=== PATIENT | male | born 1980 | race Caucasian/White ===

== ENCOUNTER → 2018-12-30 12:23 | Outpatient (CLI) | payer BC, MEDICAID, SELFPAY ==
[2018-12-30 14:31] LABS: Anion Gap 15.4 mEq/L (5-15); Blood Urea Nitrogen 11 mg/dL (7-18); Calcium 9.2 mg/dL (8.5-10.1); Carbon Dioxide 26 mmol/L (21.0-32.0); Chloride 102 mmol/L (98-107); Creatinine,Serum 0.87 mg/dL (0.70-1.30); Estimated Glomerular Filt Rate 99 ml/min (>60); GFR (African American) 120 ML/MIN (>60); Glucose 77 mg/dL (74-106); Potassium 4.4 mmoL/L (3.5-5.1); Sodium 139 mmol/L (136-145)
== END ==
PROVIDERS: Visit Provider Internal Medicine Cardiovascular Disease
DX: R07.89 Other chest pain (principal); R07.9 Chest pain, unspecified
CPT/HCPCS: 36415; 80048

== ENCOUNTER 2019-03-31 08:51 | Outpatient (RCR) | payer OTHER, SELFPAY | END 2019-03-31 09:00 | disposition home or self-care (01) | LOC: OT 08:51 | PROVIDERS: Visit Provider Orthopaedic Surgery | DX: M20.021 Boutonniere deformity of right finger(s) (principal) | CPT/HCPCS: 97763 ==

== ENCOUNTER → 2019-05-23 15:03 | Outpatient (CLI) | payer OTHER, SELFPAY ==
--- NOTE | 2019-05-23 15:14 | XR_ITS ---
XR finger RT min 2V CLINICAL INDICATION: ITS.REASON: right ring finger Boutineere deformity ORDERING PHYSICIAN: Fox Navarro MD PATIENT AGE: 39 years Comparison: None FINDINGS: No acute fracture or dislocation evident. There is mild flexion of the PIP joint and hyperextension of the DIP joint. There is a small lucency involving the distal aspect of the middle phalanx of the ring finger nonspecific. Possible small erosive change. IMPRESSION: No acute fracture. Flexion deformity of the ring finger
== END ==
PROVIDERS: Visit Provider Orthopaedic Surgery
DX: M20.021 Boutonniere deformity of right finger(s) (principal)
CPT/HCPCS: 73140

== ENCOUNTER 2019-07-03 08:00 | Outpatient (RCR) | payer OTHER, SELFPAY ==
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
== END 2019-07-03 08:05 | disposition home or self-care (01) ==
LOC: OT 08:00
PROVIDERS: Visit Provider Orthopaedic Surgery
DX: M20.021 Boutonniere deformity of right finger(s) (principal); S66.901D Unspecified injury of unspecified muscle, fascia and tendon at wrist and hand level, right hand, subsequent encounter
CPT/HCPCS: 97035; 97110; 97140; 97166

== ENCOUNTER 2020-08-21 19:16 | Emergency (ER) | payer OTHER, SELFPAY ==
--- NOTE | 2020-08-21 19:31 | XR_ITS ---
PROCEDURE: XR ANKLE LT MIN 3V CLINICAL INDICATION: PAIN AND SWELLING Left ankle pain and swelling COMPARISON: No exams were available for comparison FINDINGS: Small calcific density noted along the distal aspect of the medial malleolus and may represent a small area of exostosis. An avulsion injury could have a similar appearance. Please correlate with patient's area of pain and tenderness. There is mild soft tissue swelling laterally. No other significant anomalies are evident. The joint space is well preserved and the talar dome has an unremarkable appearance. IMPRESSION: Mild soft tissue swelling with a small calcific density noted along the distal aspect of the medial malleolus and may represent a small area of exostosis. An avulsion injury could have a similar appearance. Please correlate with patient's area of pain and tenderness Dictated by: Andrea Contreras MD 08/22/2020 06:02 Andrea Contreras MD in [place] 08/22/2020 06:02
[2020-08-21 19:35] VITALS: BP 121/73; PULSE 86; RESP 20; TEMP 36.9; O2SAT 99; BMI 31.0
--- NOTE | 2020-08-21 19:40 | HMH.EDUTC ---
[facility] [place] Disposition Clinical Impression: Gout attack Qualifiers: Gout site: ankle Gout etiology: unspecified cause Laterality: left Qualified Code(s): M10.9 - Gout, unspecified Disposition: Home, Self-Care Condition on Discharge: Good Instructions: How To Perform RICE (Rest, Ice, Compress, Elevate) Additional Instructions: Take medication as prescribed Follow up with Family Doctor for further treatment and evaluation Return if needed Straight to ER if any life threatening symptoms Prescriptions: Indomethacin 50 mg PO TID 5 Days #15 cap Transmission Status: Pending to [facility] Referrals: PCP,No [Primary Care Provider] - As needed Time of Disposition: 20:27 Medical Decision Making - Reece Inquiry Pt receiving controlled substance: No Reece was queried for this patient: No Vital Signs: 08/21/20 19:35 Temperature 98.4 F Temperature Source Oral Pulse Rate [Radial] 86 Respiratory Rate 20 Blood Pressure [Right Arm] 121/73 Blood Pressure Mean [Right Arm] 89 Blood Pressure Source [Right Arm] Automatic Cuff 02 Sat by Pulse Oximetry 99 Oxygen Delivery Method Room Air - Lab Data Lab Results 08/21/20 19:50: Uric Acid 9.1 H Orders (Tests/Meds): ED MEDICATIONS Discontinued Medications Generic Name Dose Route Start Last Admin Trade Name Freq PRN Reason Stop Dose Admin Ketorolac Tromethamine 60 mg 08/21/20 20:08 08/21/20 20:17 Ketorolac 60mg/2ml Vial IM 08/21/20 20:09 60 mg ONCE ONE Administration Methylprednisolone Sodium Succinate 125 mg 08/21/20 20:17 08/21/20 20:18 Methylprednisolone Sod Succ 125mg Vial IM 08/21/20 20:18 125 mg ONCE ONE Administration ORDERS Category Date Time Status XR ankle LT min 3V Stat Exams 08/21/20 19:31 Taken Medical Decision Narrative: Patient denies any kidney or renal problems [facility] [place] HPI - General Stated complaint: LEFT ANKLE SWOLLEN Time Seen by Provider: 08/21/20 19:40 Mode of Arrival: Ambulatory Source of Information: Patient Limitations: No Limitations Description of Symptoms (Recalled from Triage Doc. by RN): left ankle swollen and hurting since this morning. HEENT Symptoms (Recalled from RN notes): No Resp Symptoms (Recalled from RN notes): No Skin Symptoms (Recalled from RN notes): No MS Symptoms (Recalled from RN notes): Yes Functional Status (Recalled from RN notes): wnl - History of Present Illness Provider Complaint: Patient states that he woke up this morning with swelling in his left ankle States that he worked all day yesterday and did a lot of walking but does not recall hurting it States that last night around 2am he woke up to sharp pain in his ankle and then woke up an ankle was swollen and had pain when he tried to walk on it States that he broke this ankle when he was young twice. - Related Data Home Medications Medication Instructions Recorded Confirmed albuterol sulfate 90 mcg/actuation 1 puff INHALATION Q6H PRN 12/30/18 07/04/19 aerosol inhaler Previous Rx's Medication Instructions Recorded Indomethacin 50 mg PO TID 5 Days #15 cap 08/21/20 Allergies Allergy/AdvReac Type Severity Reaction Status Date / Time No Known Allergies Allergy Verified 07/04/19 09:35 - Worker's Comp Is this a Worker's Comp case?: No [facility] History - Hepatitis A Screen Drug use history?: No High risk sexual behaviors?: No History of sexually transmitted infection?: No Currently employed?: No Childcare worker?: No Do you have indoor plumbing?: Yes Do you have electricity?: Yes Attestation statement:: This patient has been screened for Hepatitis A risk factors. I have reviewed the patient's past medical history: Yes Medical History: Reports:: Asthma Denies:: Cancer, Diabetes Mellitus Type 2, Hypertension, MRSA Other Surgeries: Yes: No Previous Surgery Amputation: No Fractures: No - Social History Smoking Status: Former smoker #Yrs smoked (if former smoker): 10 Alcohol Intake: n
[2020-08-21 20:11] LABS: Uric Acid 9.1 mg/dl (3.5-8.5)
[2020-08-21 20:37] VITALS: BP 121/73; PULSE 86; RESP 20; TEMP 36.9; O2SAT 99
== END 2020-08-21 20:39 | disposition home or self-care (01) ==
PROVIDERS: Emergency Provider Nurse Practitioner
DX: M10.072 Idiopathic gout, left ankle and foot (principal); J45.909 Unspecified asthma, uncomplicated
CPT/HCPCS: 73610; 84550; 96372; 99202

== ENCOUNTER → 2020-09-06 08:24 | Outpatient (CLI) | payer OTHER, SELFPAY ==
[2020-09-06 09:12] LABS: Basophils % 0.8 % (0.1-2.0); Eosinophils # 0.1 K/mm3 (0.0-0.4); Eosinophils % 2.1 % (0.1-12.0); Hematocrit 48.7 % (42.0-52.0); Lymphocytes # 1.7 K/mm3 (0.7-4.5); Lymphocytes % 39.2 % (10-50); Mean Corpuscular HGB Conc 32.9 g/dL (31.8-35.4); Mean Corpuscular Hemoglobin 28.5 pg (27.0-31.2); Mean Corpuscular Volume 86.8 fl (80-94); Mean Platelet Volume 8.5 fl (7.4-10.4); Monocytes # 0.3 K/mm3 (0.1-1.0); Monocytes % 6.9 % (1.7-9.3); Neutrophils # 2.3 K/mm3 (1.8-7.8); Neutrophils % 50.9 % (37.0-80.0); Platelet Count 265 K/mm3 (142-424); Red Blood Count 5.61 M/mm3 (4.60-6.20); Red Cell Distribution Width 13.6 % (11.5-17.5); White Blood Count 4.4 K/mm3 (4.8-10.8)
[2020-09-06 09:21] LABS: Chloride 101 mmol/L (98-107); Potassium 4.4 mmoL/L (3.5-5.1); Sodium 138 mmol/L (136-145)
[2020-09-06 09:23] LABS: Blood Urea Nitrogen 9 mg/dl (9-20); Estimated Glomerular Filt Rate 108 ml/min (>60); GFR (African American) 131 ML/MIN (>60)
[2020-09-06 09:24] LABS: Alanine Aminotransferase 55 U/L (12-78); Albumin Level 4.5 g/dl (3.5-5.0); Albumin/Globulin Ratio 1.5 (1.1-1.8); Alkaline Phosphatase 86 U/L (38-126); Anion Gap 13.4 mEq/L (5-15); Aspartate Amino Transferase 47 U/L (17-59); Bilirubin,Total 0.5 mg/dl (0.2-1.3); Calcium 9.5 mg/dl (8.4-10.2); Carbon Dioxide 28 mmol/L (22.0-30.0); Cholesterol 170 mg/dl (140-200); Glucose 104 mg/dl (74-100); Total Protein,Serum 7.5 g/dl (6.3-8.2); Triglycerides 490 mg/dl (30-150)
[2020-09-06 09:25] LABS: Chol/HDL Ratio 5.2 (1-3.5); HDL Cholesterol 33 mg/dl (40-60)
[2020-09-06 09:36] LABS: Direct LDL Cholesterol 56.82 mg/dL (100-129)
[2020-09-06 09:42] LABS: T4 (Thyroxine) 8.2 ug/dl (5.53-11.0)
[2020-09-06 09:55] LABS: Thyroid Stimulating Hormone 3.29 uIU/mL (0.465-4.68)
[2020-09-07 18:18] LABS: PSA, Free 0.28 ng/mL; Prostate Specific Ag 0.8 ng/mL (0.0-4.0)
[2020-09-13 10:28] LABS: 1,25 Dihydroxy Vitamin D 69 pg/mL (.); 1,25-Dihydroxy, Vitamin D-2 <10 pg/mL (.); 1,25-Dihydroxy, Vitamin D-3 64 pg/mL (.)
== END ==
PROVIDERS: Visit Provider Nurse Practitioner Family
DX: R53.83 Other fatigue (principal); M10.9 Gout, unspecified; E67.3 Hypervitaminosis D
CPT/HCPCS: 36415; 80053; 80061; 82652; 84153; 84154; 84436; 84443; 85025

== ENCOUNTER 2021-02-24 11:50 | Emergency (ER) | payer OTHER, SELFPAY ==
--- NOTE | 2021-02-24 11:57 | XR_ITS ---
PROCEDURE: XR RIBS LT MIN 3V W CXR1V CLINICAL INDICATION: pain Left-sided rib pain COMPARISON: CR CXR CHEST(2 VIEWS-NOT PORTABLE) from 09/05/2015 CR CXR1VP XR chest portable from 12/20/2018 FINDINGS: Frontal view of the chest shows no acute finding. Multiple views of the left ribs show no fracture, dislocation, lytic, or blastic change. IMPRESSION: No acute findings. Dictated by: Andrea Contreras MD 02/24/2021 12:25 Andrea Contreras MD in [place] 02/24/2021 12:25
[2021-02-24 12:10] VITALS: BP 107/73; PULSE 79; RESP 20; TEMP 36.8; O2SAT 97; BMI 35.4
--- NOTE | 2021-02-24 12:31 | HMH.EDUTC ---
[facility] Disposition Clinical Impression: Contusion of rib on left side Qualifiers: Encounter type: initial encounter Qualified Code(s): S20.212A - Contusion of left front wall of thorax, initial encounter Disposition: Home, Self-Care Condition on Discharge: Good Instructions: DI for Rib Contusion, Ibuprofen Additional Instructions: *Ibuprofen nedra 6 hours with meal as needed for pain/inflammation *Not additional anti-inflammatory like motrin, aleve, advil with the above amount of ibuprofen. You can still take Tylenol every 4 hours as needed if you need something else for pain *Ice 20 minutes every 2 hours for the first 48 hours after the initial injury followed by moist heat every 20 minutes 3-4 times a day to affected area Over the counter lidocaine pain patches may help with pain *Keep this area active, no movement leads to more stiffness, However take it easy and avoid heavy lifting pushing or pulling *Follow up with you family doctor if no improvement for further treatment Prescriptions: Ibuprofen [Ibuprofen 600mg Tablet] 600 mg PO Q6HP PRN #20 tab PRN Reason: Moderate Pain Transmission Status: Pending to [facility] Referrals: Ayad Perez APRN [Primary Care Provider] - As needed Medical Decision Making - Reece Inquiry Pt receiving controlled substance: No Reece was queried for this patient: No Vital Signs: 02/24/21 12:10 Temperature 98.2 F Temperature Source Oral Pulse Rate [Right Brachial] 79 Respiratory Rate 20 Blood Pressure [Right Arm] 107/73 L Blood Pressure Mean [Right Arm] 84 Blood Pressure Source [Right Arm] Automatic Cuff Blood Pressure Position [Right Arm] Sitting 02 Sat by Pulse Oximetry 97 Oxygen Delivery Method Room Air - Radiology Data #1 Image(s): Chest (with left ribs) Image Reviewed: Yes I have reviewed radiologist's interpretation No acute findings. [facility] HPI - General Stated complaint: AO [id number] injury to left rib area Time Seen by Provider: 02/24/21 12:31 Mode of Arrival: Ambulatory Source of Information: Patient Limitations: No Limitations Description of Symptoms (Recalled from Triage Doc. by RN): PATIENT STATES HE WAS PLAYING FOOTBALL ON 02/15 AND THINKS HE FRACTURED RIBS ON HIS LEFT SIDE HEENT Symptoms (Recalled from RN notes): No Resp Symptoms (Recalled from RN notes): No Skin Symptoms (Recalled from RN notes): No MS Symptoms (Recalled from RN notes): Yes Functional Status (Recalled from RN notes): WNL - History of Present Illness Provider Complaint: Patient states that he was playing football about a week or two ago when he was tackled by his nephew and has been having pain in his left rib areas ever since State that he was worried he may have broken a rib or something - Related Data Previous Rx's Medication Instructions Recorded Ibuprofen [Ibuprofen 600mg 600 mg PO Q6HP PRN #20 tab 02/24/21 Tablet] Allergies Allergy/AdvReac Type Severity Reaction Status Date / Time No Known Allergies Allergy Verified 09/04/20 17:23 - Worker's Comp Is this a Worker's Comp case?: No [facility] History - Hepatitis A Screen Drug use history?: No High risk sexual behaviors?: No History of sexually transmitted infection?: No Currently employed?: No Childcare worker?: No Do you have indoor plumbing?: Yes Do you have electricity?: Yes Attestation statement:: This patient has been screened for Hepatitis A risk factors. I have reviewed the patient's past medical history: Yes Medical History: Reports:: Asthma Denies:: Cancer, Diabetes Mellitus Type 2, Hypertension, MRSA Other Surgeries: Yes: No Previous Surgery Amputation: No Fractures: Yes Comment: left ankle - Social History Smoking Status: Former smoker #Yrs smoked (if former smoker): 10 Alcohol Intake: never Substance Use Type: denies use Occupational Status: other Housing: house Household Members: family Family Hx:: Coronary Artery Disease, Stroke Comment: Mother-CAD@50's. Brother-M
[2021-02-24 12:44] VITALS: BP 107/73; PULSE 79; RESP 20; TEMP 36.8; O2SAT 97
== END 2021-02-24 12:48 | disposition home or self-care (01) ==
PROVIDERS: Emergency Provider Nurse Practitioner; PCP Nurse Practitioner Family
DX: S20.212A Contusion of left front wall of thorax, initial encounter (principal); W03.XXXA Other fall on same level due to collision with another person, initial encounter; Y93.61 Activity, american tackle football; Y92.89 Other specified places as the place of occurrence of the external cause; J45.909 Unspecified asthma, uncomplicated; Z87.891 Personal history of nicotine dependence
CPT/HCPCS: 71101; 99202; G0463

== ENCOUNTER 2021-07-23 13:26 | Emergency (ER) | payer OTHER, SELFPAY ==
[2021-07-23 14:23] VITALS: BP 138/88; PULSE 84; RESP 16; TEMP 37; O2SAT 100; BMI 38.2
[2021-07-23 14:29] LABS: Uric Acid 8.9 mg/dl (3.5-8.5)
--- NOTE | 2021-07-23 14:29 | HMH.EDUTC ---
[facility] [place]ression: Gout attack Qualifiers: Gout site: unspecified site Gout etiology: unspecified cause Qualified Code(s): M10.9 - Gout, unspecified Disposition: Home, Self-Care Condition on Discharge: Good Instructions: DI for Gout, Indomethacin Additional Instructions: Take medication as prescribed FOllow up with your Family Doctor if no improvement or any worsening of symptoms Return if needed Straight to ER if any life threatening symptoms Prescriptions: Indomethacin 50 mg PO TID #15 cap Transmission Status: Received by [facility] Referrals: Ayad Perez APRN [Primary Care Provider] - Medical Decision Making - Reece Inquiry Pt receiving controlled substance: No Reece was queried for this patient: No Vital Signs: 07/23/21 14:23 Temperature 98.6 F Temperature Source Oral Pulse Rate [Right] 84 Respiratory Rate 16 Blood Pressure [Right Arm] 138/88 Blood Pressure [Right Radial Artery] 138/88 Blood Pressure Mean [Right Arm] 104 Blood Pressure Mean [Right Radial Artery] 104 02 Sat by Pulse Oximetry 100 Oxygen Delivery Method Room Air - Lab Data Lab Results 07/23/21 14:08: Uric Acid 8.9 H Orders (Tests/Meds): ED MEDICATIONS Discontinued Medications Generic Name Dose Route Start Last Admin Trade Name Freq PRN Reason Stop Dose Admin Ketorolac Tromethamine 60 mg 07/23/21 14:44 07/23/21 14:52 Ketorolac 60mg/2ml Vial IM 07/23/21 14:45 60 mg ONCE ONE Administration Methylprednisolone Sodium Succinate 125 mg 07/23/21 14:44 07/23/21 14:52 Methylprednisolone Sod Succ 125mg Vial IM 07/23/21 14:45 125 mg ONCE ONE Administration [facility] [place] - General Stated complaint: right arm pain, no accident Time Seen by Provider: 07/23/21 14:29 Description of Symptoms (Recalled from Triage Doc. by RN): RIGHT ARM PAIN RADIATING DOWN TO ELBOW & WRIST. I THINK MY GOUT HAS COME BACK. HEENT Symptoms (Recalled from RN notes): No Resp Symptoms (Recalled from RN notes): No Skin Symptoms (Recalled from RN notes): No MS Symptoms (Recalled from RN notes): Yes Functional Status (Recalled from RN notes): WNL - History of Present Illness Provider Complaint: Patient states that his wrist was hurting then he went bowling last night and had pain when he would try to bowl in his wrist States that today he was hurting in her elbow and wrist and thinks his gout has come back and wanted to get checked - Related Data Previous Rx's Medication Instructions Recorded prednisone 20 mg tablet 20 mg PO BID 5 Days #10 tab 05/14/21 Indomethacin 50 mg PO TID #15 cap 07/23/21 Allergies Allergy/AdvReac Type Severity Reaction Status Date / Time No Known Allergies Allergy Verified 07/23/21 14:29 - Worker's Comp Is this a Worker's Comp case?: No [facility] History - Hepatitis A Screen Drug use history?: No High risk sexual behaviors?: No History of sexually transmitted infection?: No Currently employed?: No Childcare worker?: No Do you have indoor plumbing?: Yes Do you have electricity?: Yes Attestation statement:: This patient has been screened for Hepatitis A risk factors. I have reviewed the patient's past medical history: Yes Medical History: Reports:: Asthma Denies:: Cancer, Diabetes Mellitus Type 2, Hypertension, MRSA Other Surgeries: Yes: No Previous Surgery Amputation: No Fractures: Yes Comment: left ankle - Social History Smoking Status: Former smoker #Yrs smoked (if former smoker): 10 Alcohol Intake: never Substance Use Type: denies use Occupational Status: other Housing: house Household Members: family Family Hx:: Coronary Artery Disease, Stroke Comment: Mother-CAD@50's. Brother-Mild Stroke ROS Obtained: Yes All systems reviewed & no additional complaints, Yes Systems reviewed as appropriate & no additional complaints - Constitutional Constitutional: Reports system reviewed and no additional complaints, except as docu, Denies body ache,
[2021-07-23 15:36] VITALS: BP 138/88; PULSE 84; RESP 16; TEMP 37; O2SAT 100
== END 2021-07-23 15:37 | disposition home or self-care (01) ==
PROVIDERS: Emergency Provider Nurse Practitioner; PCP Nurse Practitioner Family
DX: M10.021 Idiopathic gout, right elbow (principal); J45.909 Unspecified asthma, uncomplicated
CPT/HCPCS: 84550; 96372; 99202; G0463

== ENCOUNTER 2021-08-27 10:55 | Emergency (ER) | payer OTHER, SELFPAY ==
[2021-08-27 11:28] VITALS: BP 116/65; PULSE 84; RESP 18; TEMP 36.4; O2SAT 96; BMI 27.2
[2021-08-27 11:31] VITALS: BP 113/66; PULSE 64; RESP 14; TEMP 36.8; O2SAT 98; BMI 35.4
--- NOTE | 2021-08-27 11:33 | XR_ITS ---
PROCEDURE: XR WRIST RT MIN 3V CLINICAL INDICATION: pain COMPARISON: CR WRR3 WRIST-3 VIEWS-RT from 08/31/2013 CR WRISTCMRT XR wrist RT min 3V from 05/05/2018 CR WRISTCMRT XR wrist RT min 3V from 10/31/2018 FINDINGS: No fracture or dislocation. There are cystic changes present within the lunate which are nonspecific The joint spaces are well-preserved. No significant degenerative/arthritic changes. No erosive changes evident. Other findings:None. IMPRESSION: Small cystic areas within the lunate which have developed since 10/31/2018 but have a benign appearance. Please correlate with clinical parameters. These may be due to small geodes. Dictated by: Andrea Contreras MD 08/27/2021 14:40 Andrea Contreras MD in [place] 08/27/2021 14:40
--- NOTE | 2021-08-27 11:33 | XR_ITS ---
PROCEDURE: XR FOREARM RT 2V CLINICAL INDICATION: pain COMPARISON: CR XR WRIST RT MIN 3V from 08/27/2021 FINDINGS: No fracture or dislocation. No lytic or blastic change. There is normal mineralization. The joint spaces are well-preserved. No significant degenerative/arthritic changes. No erosive changes evident. Other findings:None. IMPRESSION: Negative right forearm Dictated by: Andrea Contreras MD 08/27/2021 14:38 Adnrea Contreras MD in [place] 08/27/2021 14:38
--- NOTE | 2021-08-27 12:50 | HMH.EDUTC ---
[facility] [place] Clinical Impression: Tenosynovitis of right wrist, Right wrist pain, Right forearm pain Disposition: Home, Self-Care Condition on Discharge: Good Instructions: Tenosynovitis, DI for Tenosynovitis Additional Instructions: Rest the extremity, wear the splint to try to allow your tendons time to rest and heal, Elevate the extremity as tolerated while you are resting. Take the steroids (medrol dose pack) as directed to try to reduce the inflammation that is around your tendons in your hand and wrist. Follow up with Dr. Navarro (orthopedics). I put in a referral but you need to call his office and schedule an appointment. This will probably be an ongoing issue until it resolves, so make sure you follow up with orthopedics. Follow up with your regular doctor. GO TO THE ER FOR ANY WORSENING SYMPTOMS Prescriptions: methylPREDNISolone [Medrol] 4 mg PO DIRECTED 6 Days #21 packet Transmission Status: Received by [facility] Referrals: Javy Chen MD [Primary Care Provider] - Fox Navarro MD [Staff Physician] - Forms: Work/School Release Time of Disposition: 13:05 Medical Decision Making - Medical Records Medical records reviewed: No: I reviewed the patient's medical records. - Reece Inquiry Pt receiving controlled substance: No Vital Signs: 08/27/21 11:28 08/27/21 11:31 08/27/21 12:55 Temperature 97.6 F 98.2 F 98.2 F Temperature Source Oral Oral Pulse Rate 64 Pulse Rate [Left] 64 Pulse Rate [Right Radial] 84 Respiratory Rate 18 14 14 Blood Pressure 113/66 Blood Pressure [Right Arm] 116/65 113/66 Blood Pressure Mean [Right Arm] 82 81 Blood Pressure Source [Right Arm] Automatic Cuff Blood Pressure Position [Right Arm] Supine 02 Sat by Pulse Oximetry 96 98 Oxygen Delivery Method Room Air - Radiology Data #1 Image(s): Wrist Image Reviewed: Yes I reviewed the patient's radiology image, Yes I have reviewed radiologist's interpretation Preliminary Findings: Abnormal PROCEDURE: XR WRIST RT MIN 3V CLINICAL INDICATION: pain COMPARISON: CR WRR3 WRIST-3 VIEWS-RT from 08/31/2013 CR WRISTCMRT XR wrist RT min 3V from 05/05/2018 CR WRISTCMRT XR wrist RT min 3V from 10/31/2018 FINDINGS: No fracture or dislocation. There are cystic changes present within the lunate which are nonspecific The joint spaces are well-preserved. No significant degenerative/arthritic changes. No erosive changes evident. Other findings:None. IMPRESSION: Small cystic areas within the lunate which have developed since 10/31/2018 but have a benign appearance. Please correlate with clinical parameters. These may be due to small geodes. Dictated by: Andrea Contreras MD 08/27/2021 14:40 Andrea Contreras MD in [place] 08/27/2021 14:40 [facility] [facility] [place] - General Stated complaint: 08/26 AO rt wrist pain/swelling Time Seen by Provider: 08/27/21 11:45 Mode of Arrival: Ambulatory Source of Information: Patient Limitations: No Limitations Description of Symptoms (Recalled from Triage Doc. by RN): pt went bowling 08/19 and felt a pop in his R wrist. pt is still having pain and unable to do any lifting. 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 He states that 2 weeks ago after bowling he began having right wrist pain. He had tried to rest his wrist and go down to bowling 2 nights per week, but his wrist and forearm pain had continued. Then, last night when he was bowling he heard an audible pop and his wrist pain worsened. He denies any falls or other injuries. He denies any numbness or tingling of his hand. He denies any shou
[2021-08-27 12:55] VITALS: BP 113/66; PULSE 64; RESP 14; TEMP 36.8
== END 2021-08-27 13:11 | disposition home or self-care (01) ==
PROVIDERS: Emergency Provider Nurse Practitioner Family; PCP Emergency Medicine
DX: M65.831 Other synovitis and tenosynovitis, right forearm (principal); J45.909 Unspecified asthma, uncomplicated; Z87.891 Personal history of nicotine dependence
CPT/HCPCS: 29125; 73090; 73110; 99202; G0463

== ENCOUNTER → 2021-10-22 09:09 | Outpatient (CLI) | payer OTHER, SELFPAY | PROVIDERS: PCP Emergency Medicine; Visit Provider Nurse Practitioner | DX: Z20.822 Contact with and (suspected) exposure to COVID-19 (principal) | CPT/HCPCS: C9803; U0003; U0005 ==

== ENCOUNTER 2022-08-31 09:55 | Emergency (ER) | payer OTHER, SELFPAY ==
--- NOTE | 2022-08-31 09:58 | EXP.UTC ---
Discharge Plan Disposition Patient Disposition: Home, Self-Care Condition: Good Prescriptions Prescriptions: New methylprednisolone 4 mg Tablets,Dose Pack 4 mg PO DIRECTED Qty: 21 0RF allopurinol 100 mg tablet 100 mg PO BID 30 Days Qty: 60 0RF No Action indomethacin 50 mg capsule 50 mg PO TID Qty: 30 0RF prednisone 20 mg tablet 20 mg PO BID 5 Days Qty: 10 0RF allopurinol 100 mg tablet 100 mg PO DAILY Referrals Follow up/Referrals: Ayad Perez APRN [Primary Care Provider] - See instructions Activity Restrictions/Add. Instructions Additional Instructions/Restrictions: Drink plenty of fluids. Make sure you follow your low uric acid diet closely. Take tylenol or ibuprofen for pain or fever. Take the medications as directed. Follow up with your regular doctor. GO TO THE ER FOR ANY WORSENING SYMPTOMS Clinical Impressions Clinical Impression: Gout attack Stand Alone Forms Stand Alone Forms: Work/School Release Instructions Patient Instructions: Gout, DI for Gout Discharge ED Provider: Charles Doyle [facility] General Stated complaint: left ankle pain, no accident Time Seen by Provider: 08/31/22 09:58 History of Present Illness Provider Complaint: He is here with left ankle pain. He states that he has a history of gout. He believes his allopurinol needs to be increased, but he was unable to get in with his pcp to have it adjusted. Related Data Home Medications Medication Instructions Recorded Confirmed allopurinol 100 mg tablet 100 mg PO DAILY gout 08/31/22 08/31/22 Previous Rx's Medication Instructions Recorded indomethacin 50 mg capsule 50 mg PO TID #30 caps 06/19/22 prednisone 20 mg tablet 20 mg PO BID 5 days #10 tabs 06/19/22 allopurinol 100 mg tablet 100 mg PO BID 30 days #60 tabs 08/31/22 methylprednisolone 4 mg tablets in 4 mg PO DIRECTED #21 tabs 08/31/22 a dose pack Allergies Allergy/AdvReac Type Severity Reaction Status Date / Time No Known Allergies Allergy Verified 08/31/22 10:11 [facility] Medical History Asthma Social History Smoking Status: Former smoker pack-years: 10 alcohol intake: never substance use type: denies use current occupational status: other Travel in the last 8 weeks: None household members: family housing: house ROS Obtained: Yes All systems reviewed & no additional complaints except as documented Constitutional Constitutional: Denies chills and Denies fever(s) Integumentary/Breasts Skin/Breast: Denies redness, Denies rash and Denies wounds Neurologic Neurologic: Denies paresthesias Physical Exam General General appearance: alert and in no apparent distress Head Head exam: atraumatic, normocephalic and normal inspection Eye Eye exam: Present normal appearance, PERRL and EOMI ENT ENT exam: Present normal exam, normal oropharynx, mucous membranes moist, TM's normal bilaterally and normal external ear exam Neck Neck exam: Present normal inspection, full ROM and trachea midline; Absent meningismus or lymphadenopathy Chest Chest inspection: Present normal inspection and symmetric chest wall rise; Absent tenderness Respiratory Respiratory exam: Present normal lung sounds bilaterally; Absent respiratory distress Cardiovascular Cardiovascular exam: Present regular rate and normal rhythm; Absent JVD Abdominal Exam Abdominal exam: Present soft and normal bowel sounds; Absent distention, tenderness or guarding Extremities Exam Extremities exam: Present normal capillary refill; Absent calf tenderness Expanded Lower Extremity Exam Left: Ankle exam: Present normal inspection and full ROM; Absent tenderness Foot/toe exam: Present normal inspection and full ROM; Absent tenderness Back Exam Back exam: Present normal inspection; Absent tenderness Neurological Exam Neurologic
[2022-08-31 10:09] VITALS: BP 123/80; PULSE 73; RESP 18; TEMP 36.6; O2SAT 97; BMI 35.7
[2022-08-31 10:49] VITALS: BP 123/80; PULSE 73; RESP 18; TEMP 36.6
== END 2022-08-31 10:54 | disposition home or self-care (01) ==
PROVIDERS: Emergency Provider Nurse Practitioner Family; PCP Nurse Practitioner Family
DX: M10.9 Gout, unspecified (principal)
CPT/HCPCS: 99212; G0463

== ENCOUNTER → 2022-12-03 10:30 | Outpatient (CLI) | payer OTHER, SELFPAY | PROVIDERS: PCP Nurse Practitioner Family; Visit Provider Nurse Practitioner Family | DX: I10 Essential (primary) hypertension (principal) ==

== ENCOUNTER → 2022-12-03 10:42 | Outpatient (CLI) | payer OTHER, SELFPAY ==
--- NOTE | 2022-12-03 10:47 | XR_ITS ---
FINAL REPORT CLINICAL HISTORY: L Ankle pain, gout COMPARISON: 08/21/2020 FINDINGS: AP, oblique, and lateral views of the left ankle were obtained. No erosions are identified. There is no fracture or dislocation. The ankle mortise is intact. Soft tissues are normal. IMPRESSION: No acute osseous abnormality of the left ankle. Reviewed, Interpreted and Dictated by Aileen Guevara MD Transcribed by Madeline Starks Authenticated and [facility]
[2022-12-03 15:00] LABS: Alanine Aminotransferase 53 U/L (12-78); Albumin Level 4.6 g/dl (3.5-5.0); Albumin/Globulin Ratio 1.6 (1.1-1.8); Alkaline Phosphatase 95 U/L (38-126); Anion Gap 13.6 mEq/L (5-15); Aspartate Amino Transferase 38 U/L (17-59); Bilirubin,Total 0.5 mg/dl (0.2-1.3); Blood Urea Nitrogen 16 mg/dl (9-20); Carbon Dioxide 26 mmol/L (22.0-30.0); Chloride 102 mmol/L (98-107); Cholesterol 204 mg/dl (140-200); Estimated Glomerular Filt Rate 107 ml/min (>60); GFR (African American) 130 ML/MIN (>60); Globulin 2.8 g/dL (1.3-3.2); Glucose 99 mg/dl (74-100); HDL Cholesterol 29 mg/dl (40-60); Potassium 4.6 mmoL/L (3.5-5.1); Sodium 137 mmol/L (136-145); Total Protein,Serum 7.4 g/dl (6.3-8.2); Uric Acid 6.1 mg/dl (3.5-8.5)
[2022-12-03 15:06] LABS: Basophils # 0.1 K/mm3 (0-0.2); Basophils % 1.1 % (0.1-2.0); Eosinophils # 0.1 K/mm3 (0.0-0.4); Eosinophils % 1.3 % (0.1-12.0); Hematocrit 45.6 % (42.0-52.0); Hemoglobin 16.1 g/dL (14.1-18.0); Lymphocytes # 2.1 K/mm3 (0.7-4.5); Lymphocytes % 34.2 % (10-50); Mean Corpuscular HGB Conc 35.3 g/dL (31.8-35.4); Mean Corpuscular Hemoglobin 30.1 pg (27.0-31.2); Mean Corpuscular Volume 85.2 fl (80-94); Mean Platelet Volume 9.9 fl (7.4-10.4); Monocytes # 0.4 K/mm3 (0.1-1.0); Monocytes % 6.7 % (1.7-9.3); Neutrophils # 3.5 K/mm3 (1.8-7.8); Neutrophils % 56.6 % (37.0-80.0); Platelet Count 305 K/mm3 (142-424); Red Blood Count 5.35 M/mm3 (4.60-6.20); Red Cell Distribution Width 13.9 % (11.5-17.5); White Blood Count 6.1 K/mm3 (4.8-10.8)
[2022-12-03 15:11] LABS: Direct LDL Cholesterol 63.94 mg/dL (100-129); Triglycerides 833 mg/dl (30-150)
[2022-12-03 15:29] LABS: Thyroid Stimulating Hormone 1.77 uIU/mL (0.465-4.68)
== END ==
PROVIDERS: PCP Nurse Practitioner Family; Visit Provider Nurse Practitioner Family
DX: M25.572 Pain in left ankle and joints of left foot (principal); R53.83 Other fatigue; M10.9 Gout, unspecified; I10 Essential (primary) hypertension
CPT/HCPCS: 73610; 80053; 80061; 84443; 84550; 85025

== ENCOUNTER 2022-12-21 09:59 | Emergency (ER) | payer OTHER, SELFPAY ==
[2022-12-21 10:01] VITALS: BP 124/76; PULSE 73; RESP 18; TEMP 36.4; O2SAT 98; BMI 38.4
--- NOTE | 2022-12-21 10:18 | HMH.EDGENADL ---
Discharge Plan Disposition Patient Disposition: Home, Self-Care Prescriptions Prescriptions: New ibuprofen 800 mg tablet 800 mg PO Q8H PRN (Reason: pain) 7 Days Qty: 30 0RF cyclobenzaprine 5 mg tablet 5 mg PO Q8H PRN (Reason: muscle spasm) 5 Days Qty: 14 0RF No Action allopurinol 100 mg tablet 100 mg PO BID Rx Instructions: 100mg AM 200mg PM Referrals Follow up/Referrals: Ayad Perez APRN [Primary Care Provider] - See instructions Activity Restrictions/Add. Instructions Additional Instructions/Restrictions: You been diagnosed today with an acute lumbosacral strain. You have no symptoms suggestive of a fracture or dislocation of your spine or spinal cord or spinal root pathology which is why you did not need x-ray CAT scan or MRI today. This will be self-limiting and will be treated supportively. Please take ibuprofen and Flexeril as indicated. Follow-up with your primary care doctor or return to the ER with concerns. Clinical Impressions Clinical Impression: Lumbosacral strain Instructions Patient Instructions: DI for Low Back Pain Discharge ED Provider: Ayad Whitney General Adult HPI General Chief complaint: Back Pain/Injury Stated complaint: back pain Time Seen by Provider: 12/21/22 10:19 Mode of Arrival: Ambulatory Source of Information: Patient Limitations: No Limitations Description of Symptoms (Recalled from ER Triage Doc. by RN): Pt reports lower back pain in the center of his back. Pt reports radiates down both legs with movement. Pt denies urinary symptoms. Pt reports began having back pain yesterday when playing with his kid. History of Present Illness HPI narrative: Patient is a 42-year-old male presenting with acute lower back pain. States he was wrestling with his 16-year-old and felt a pull in his back. It is in the lumbosacral region bilaterally crossing the midline. Patient states pain is moderate took some Advil last night with some slight improvement. Patient denies any lower extremity paresthesias paralysis, denies urinary or bowel incontinence, urinary retention, midline back pain which is maximal, fever, or history of injection drug use. Related Data Home Medications Medication Instructions Recorded Confirmed allopurinol 100 mg tablet 100 mg PO BID gout 12/21/22 12/21/22 Previous Rx's Medication Instructions Recorded cyclobenzaprine 5 mg tablet 5 mg PO Q8H PRN muscle spasm 5 12/21/22 days #14 tabs ibuprofen 800 mg tablet 800 mg PO Q8H PRN pain 7 days #30 12/21/22 tabs Allergies Allergy/AdvReac Type Severity Reaction Status Date / Time No Known Allergies Allergy Verified 12/14/22 13:02 [facility] Disclaimer: The information contained in this section may have been updated after the patient was seen, as this information can be updated by other users. Medical History Asthma Social History Smoking Status: Never smoker alcohol intake: never substance use type: denies use current occupational status: other Travel in the last 8 weeks: None household members: family housing: house ROS Obtained: Yes All systems reviewed & no additional complaints except as documented Physical Exam General General appearance: alert and in no apparent distress Respiratory Respiratory exam: Present normal lung sounds bilaterally; Absent respiratory distress Cardiovascular Cardiovascular exam: Present regular rate Back Exam Back exam: Present other (Patient is focally tender mainly in the left lumbosacral region paraspinal also has tenderness in the right lumbosacral region which is paraspinal there is minimal tenderness in the midline patient has normal motor and sensory exam in his lower extremities.) Neurological Exam Neurological exam: Present alert and oriented X3 Medical Decision Making Reece Inquiry Pt receiv
--- NOTE | 2022-12-21 10:22 | PC.NURSE ---
ROD BLANCHARD at
[2022-12-21 10:59] VITALS: BP 130/78; PULSE 74; RESP 18; TEMP 36.4; O2SAT 96
== END 2022-12-21 10:59 | disposition home or self-care (01) ==
LOC: ER 10:39
PROVIDERS: Emergency Provider Student in an Organized Health Care Education/Training Program; PCP Nurse Practitioner Family
DX: S39.012A Strain of muscle, fascia and tendon of lower back, initial encounter (principal); X50.0XXA Overexertion from strenuous movement or load, initial encounter
CPT/HCPCS: 96372; 99283; 99284; 99285

== ENCOUNTER 2023-07-09 14:23 | Emergency (ER) | payer OTHER, SELFPAY ==
[2023-07-09 14:24] VITALS: BP 104/67; PULSE 81; RESP 20; TEMP 36.8; O2SAT 98; BMI 38.4
--- NOTE | 2023-07-09 14:42 | EXP.UTC ---
Discharge Plan Disposition Patient Disposition: Home, Self-Care Condition: Good Prescriptions Prescriptions: New azithromycin [Zithromax] 250 mg tablet 250 mg PO UD DOSE PK Qty: 6 0RF Rx Instructions: Take two (2) tablets today, then one (1) tablet days #2 thru #5 benzonatate [benzonatate] 100 mg capsule 100 mg PO TIDP PRN (Reason: Cough) Qty: 30 0RF methylprednisolone 4 mg Tablets,Dose Pack 4 mg PO DIRECTED Qty: 21 0RF No Action allopurinol 100 mg tablet See Rx Instructions .ROUTE .COMPLEX Qty: 90 1RF Dose Instruction: TAKE 1 TABLET BY MOUTH EACH MORNING AND 2 TABLETS AT NIGHT DIRECTED Rx Instructions: TAKE 1 TABLET BY MOUTH EACH MORNING AND 2 TABLETS AT NIGHT DIRECTED ibuprofen 800 mg tablet 800 mg PO Q8H PRN (Reason: pain) 7 Days Qty: 30 0RF cyclobenzaprine 5 mg tablet 5 mg PO Q8H PRN (Reason: muscle spasm) 5 Days Qty: 14 0RF Referrals Follow up/Referrals: Ayad Perez APRN [Primary Care Provider] - See instructions Activity Restrictions/Add. Instructions Additional Instructions/Restrictions: Drink plenty of fluids. Take tylenol or ibuprofen for pain or fever. Take the medications as directed. Follow up with your regular doctor. GO TO THE ER FOR ANY WORSENING SYMPTOMS Clinical Impressions Clinical Impression: Acute viral syndrome, Sinusitis Instructions Patient Instructions: Sinusitis, DI for Sinusitis, DI for Viral Syndrome Discharge ED Provider: Charles Doyle [facility] General Stated complaint: SOA fever Mode of Arrival: Ambulatory Source of Information: Patient Limitations: No Limitations Time Seen by Provider: 07/09/23 14:42 Description of Symptoms (Recalled from Triage Doc. by RN): Patient reports difficulty breathing, fever and headache for 2 days. HEENT Symptoms (Recalled from RN notes): No Resp Symptoms (Recalled from RN notes): Yes Skin Symptoms (Recalled from RN notes): No MS Symptoms (Recalled from RN notes): No Functional Status (Recalled from RN notes): wnl History of Present Illness Provider Complaint: He states that for the past 2 days he has had sinus congestion, chest congestion, body aches, chills, and fever. Related Data Previous Rx's Medication Instructions Recorded cyclobenzaprine 5 mg tablet 5 mg PO Q8H PRN muscle spasm 5 12/21/22 days #14 tabs ibuprofen 800 mg tablet 800 mg PO Q8H PRN pain 7 days #30 12/21/22 tabs allopurinol 100 mg tablet See Rx Instructions .Route 06/11/23 .COMPLEX #90 tabs azithromycin 250 mg tablet 250 mg PO UD DOSE PK #6 tabs 07/09/23 (Zithromax) benzonatate 100 mg capsule 100 mg PO TIDP PRN Cough #30 caps 07/09/23 methylprednisolone 4 mg tablets in 4 mg PO DIRECTED #21 tabs 07/09/23 a dose pack Allergies Allergy/AdvReac Type Severity Reaction Status Date / Time No Known Allergies Allergy Verified 12/14/22 13:02 Worker's Comp Is this a Worker's Comp case?: No [facility] Disclaimer: The information contained in this section may have been updated after the patient was seen, as this information can be updated by other users. Medical History Asthma Social History Smoking Status: Never smoker alcohol intake: never substance use type: denies use current occupational status: other Travel in the last 8 weeks: None household members: family housing: house ROS Obtained: Yes All systems reviewed & no additional complaints except as documented Constitutional Constitutional: Reports chills and Reports fever(s) Eyes Eyes: Denies eye discharge ENT Ears, Nose, Mouth, and Throat: Reports as per HPI Cardiovascular Cardiovascular: Denies chest pain Respiratory Respiratory: Denies shortness of breath, Reports chest congestion, Reports cough, Denies stridor and Denies wheezing Gastrointestinal Gastrointestingal: Reports nausea; Denies
[2023-07-09 15:02] VITALS: BP 104/67; PULSE 81; RESP 20; TEMP 36.8; O2SAT 98
== END 2023-07-09 15:09 | disposition home or self-care (01) ==
PROVIDERS: Emergency Provider Nurse Practitioner Family; PCP Nurse Practitioner Family
DX: U07.1 COVID-19 (principal); J01.90 Acute sinusitis, unspecified; R50.9 Fever, unspecified; J45.909 Unspecified asthma, uncomplicated
CPT/HCPCS: 99212; 99214; G0463

== ENCOUNTER 2023-10-14 20:07 | Emergency (ER) | payer OTHER, SELFPAY ==
[2023-10-14 20:09] VITALS: BP 132/73; PULSE 72; RESP 17; TEMP 36.7; O2SAT 100; BMI 35.4
--- NOTE | 2023-10-14 20:28 | XR_ITS ---
PROCEDURE INFORMATION: Exam: XR Left Forearm Exam date and time: 10/14/2023 8:34 PM Age: 43 years old Clinical indication: Pain; Lower or forearm; Left TECHNIQUE: Imaging protocol: Radiologic exam of the left forearm. Views: 2 views. COMPARISON: No relevant prior studies available. FINDINGS: Bones/joints: No acute fracture. No dislocation. Soft tissues: Unremarkable. IMPRESSION: No fracture.
--- NOTE | 2023-10-14 20:28 | XR_ITS ---
PROCEDURE INFORMATION: Exam: XR Left Elbow Exam date and time: 10/14/2023 8:34 PM Age: 43 years old Clinical indication: Pain; Elbow; Left TECHNIQUE: Imaging protocol: Radiologic exam of the left elbow. Views: 3 or more views. COMPARISON: No relevant prior studies available. FINDINGS: Bones/joints: No acute fracture. No dislocation. No significant joint effusion. Soft tissues: Unremarkable. IMPRESSION: No fracture.
--- NOTE | 2023-10-14 20:28 | XR_ITS ---
PROCEDURE INFORMATION: Exam: XR Left Humerus Exam date and time: 10/14/2023 8:31 PM Age: 43 years old Clinical indication: Pain; Upper arm; Left TECHNIQUE: Imaging protocol: Radiologic exam of the left humerus. Views: 2 or more views. COMPARISON: CR XR RIBS LT MIN 3V W CXR1V 02/24/2021 12:07 PM FINDINGS: Bones/joints: No acute fracture. No dislocation. Lungs: Few probable calcified granulomas within LEFT lung base, present on previous examination. Soft tissues: Unremarkable. IMPRESSION: No fracture.
--- NOTE | 2023-10-14 21:01 | HMH.EDGENADL ---
Discharge Plan Disposition Patient Disposition: Home, Self-Care Condition: Good Chief Complaint: Extremity Injury, Upper Prescriptions Prescriptions: No Action allopurinol 100 mg tablet See Rx Instructions .ROUTE .COMPLEX Qty: 90 1RF Dose Instruction: TAKE 1 TABLET BY MOUTH EACH MORNING AND 2 TABLETS AT NIGHT DIRECTED Rx Instructions: TAKE 1 TABLET BY MOUTH EACH MORNING AND 2 TABLETS AT NIGHT DIRECTED ibuprofen 800 mg tablet 800 mg PO Q8H PRN (Reason: pain) 7 Days Qty: 30 0RF cyclobenzaprine 5 mg tablet 5 mg PO Q8H PRN (Reason: muscle spasm) 5 Days Qty: 14 0RF azithromycin [Zithromax] 250 mg tablet 250 mg PO UD DOSE PK Qty: 6 0RF Rx Instructions: Take two (2) tablets today, then one (1) tablet days #2 thru #5 benzonatate [benzonatate] 100 mg capsule 100 mg PO TIDP PRN (Reason: Cough) Qty: 30 0RF methylprednisolone 4 mg Tablets,Dose Pack 4 mg PO DIRECTED Qty: 21 0RF Referrals Follow up/Referrals: Ayad Perez APRN [Primary Care Provider] - See instructions Clinical Impressions Clinical Impression: Elbow arthritis Instructions Patient Instructions: DI for Arthritis Discharge ED Provider: Silvina Blount General Adult HPI General Chief complaint: Extremity Injury, Upper Stated complaint: LT elbow pain Time Seen by Provider: 10/14/23 20:28 Mode of Arrival: Ambulatory Source of Information: Patient Limitations: No Limitations Description of Symptoms (Recalled from ER Triage Doc. by RN): Patient reports sharp pain in left elbow that is caused by movement of the arm. Patient denies trauma, fall, fever, swelling. 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 Took a dose of motrin this AM. History of Present Illness HPI narrative: Patient reports sharp pain in left elbow that is caused by movement of the arm. Patient denies trauma, fall, fever, swelling. 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 Took a dose of motrin this AM. 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 Patient denies any recent injury. Related Data Previous Rx's Medication Instructions Recorded cyclobenzaprine 5 mg tablet 5 mg PO Q8H PRN muscle spasm 5 12/21/22 days #14 tabs ibuprofen 800 mg tablet 800 mg PO Q8H PRN pain 7 days #30 12/21/22 tabs allopurinol 100 mg tablet See Rx Instructions .Route 06/11/23 .COMPLEX #90 tabs azithromycin 250 mg tablet 250 mg PO UD DOSE PK #6 tabs 07/09/23 (Zithromax) benzonatate 100 mg capsule 100 mg PO TIDP PRN Cough #30 caps 07/09/23 methylprednisolone 4 mg tablets in 4 mg PO DIRECTED #21 tabs 07/09/23 a dose pack Allergies Allergy/AdvReac Type Severity Reaction Status Date / Time No Known Allergies Allergy Verified 12/14/22 13:02 [facility] Disclaimer: The information contained in this section may have been updated after the patient was seen, as this information can be updated by other users. Medical History Asthma Social History Smoking Status: Never smoker alcohol intake: never substance use type: denies use current occupational status: other Travel in the last 8 weeks: None household members: family housing: house ROS Obtained: Yes All systems reviewed & no additional complaints except as documented Physical Exam General General appearance: alert and in no apparent distress Head Head exam: atraumatic, normocephalic and normal inspection Eye Eye exam: Present normal appearance, PERRL and EOMI; Absent scleral icterus or nystagmus ENT ENT exam: Present normal exam, mucous membranes moist and normal external ear exam Neck Neck exam: Present normal inspection, full ROM and trachea midline Chest Chest inspection: Present normal inspection an
[2023-10-14 21:39] VITALS: BP 136/78; PULSE 87; RESP 18; TEMP 36.7; O2SAT 99
== END 2023-10-14 21:42 | disposition home or self-care (01) ==
PROVIDERS: Emergency Provider Emergency Medicine; PCP Nurse Practitioner Family
DX: M19.022 Primary osteoarthritis, left elbow (principal); M25.522 Pain in left elbow; J45.909 Unspecified asthma, uncomplicated
CPT/HCPCS: 73060; 73080; 73090; 99283

== ENCOUNTER 2023-11-17 11:32 | Emergency (ER) | payer OTHER, SELFPAY ==
[2023-11-17 12:10] VITALS: BP 106/65; PULSE 77; RESP 18; TEMP 36.4; O2SAT 96; BMI 36.9
--- NOTE | 2023-11-17 12:24 | XR_ITS ---
FINAL REPORT CLINICAL HISTORY: fall COMPARISON: None FINDINGS: LUMBAR SPINE: No fracture is identified. Mild degenerative changes present with small anterior osteophytes. Alignment is normal. IMPRESSION: No acute abnormality is identified. Mild degenerative change with small anterior osteophytes. Reviewed, Interpreted and Dictated by Shady Wells III, MD Transcribed by Christina Anaya Authenticated and [facility]
--- NOTE | 2023-11-17 12:34 | ED_ITS ---
Discharge Plan Disposition Patient Disposition: Home, Self-Care Condition: Good Prescriptions Prescriptions: New prednisone [prednisone] 20 mg tablet 20 mg PO BID Qty: 10 0RF cyclobenzaprine 5 mg tablet 5 mg PO HS PRN (Reason: muscle spasm) Qty: 7 0RF No Action allopurinol 100 mg tablet See Rx Instructions .ROUTE .COMPLEX Qty: 90 0RF Dose Instruction: TAKE 1 TABLET BY MOUTH EACH MORNING AND 2 TABLETS AT NIGHT DIRECTED Rx Instructions: TAKE 1 TABLET BY MOUTH EACH MORNING AND 2 TABLETS AT NIGHT DIRECTED Referrals Follow up/Referrals: Ayad Perez APRN [Primary Care Provider] - See instructions Activity Restrictions/Add. Instructions Additional Instructions/Restrictions: follow up with pcp for more work up if no improvement tylenol or motrin as needed for pain steroids as ordered muscle relaxer as ordered Clinical Impressions Clinical Impression: Lumbosacral strain Qualifiers: Encounter type: initial encounter Qualified Code(s): S39.012A - Strain of muscle, fascia and tendon of lower back, initial encounter Instructions Patient Instructions: DI for Low Back Pain, Low Back Pain (Alternative Therapy), Low Back Pain Discharge ED Provider: Brayan ([facility])Shady [facility] HPI General Stated complaint: bent over and hurt back Mode of Arrival: Ambulatory Source of Information: Patient Limitations: No Limitations Time Seen by Provider: 11/17/23 12:34 Description of Symptoms (Recalled from Triage Doc. 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 He stated that his lower back is really hurting now. HEENT Symptoms (Recalled from RN notes): No Resp Symptoms (Recalled from RN notes): No Skin Symptoms (Recalled from RN notes): No MS Symptoms (Recalled from RN notes): No Functional Status (Recalled from RN notes): n/a History of Present Illness Provider Complaint: 43 yr old male presents for low back pain. Pt states that he bent over to waste picker a light bulb off the floor and his back gave out. He stated that his lower back is really hurting now. no loss of bowel or bladder, no radiating pain Related Data Previous Rx's Medication Instructions Recorded allopurinol 100 mg tablet See Rx Instructions .Route 10/25/23 .COMPLEX #90 tabs cyclobenzaprine 5 mg tablet 5 mg PO HS PRN muscle spasm #7 tabs 01/03/24 prednisone 20 mg tablet 20 mg PO BID #10 tabs 11/17/23 Allergies Allergy/AdvReac Type Severity Reaction Status Date / Time No Known Allergies Allergy Verified 11/17/23 12:32 Worker's Comp Is this a Worker's Comp case?: No [facility] Disclaimer: The information contained in this section may have been updated after the patient was seen, as this information can be updated by other users. Medical History , [employer]) Asthma Social History , [employer]) Smoking Status: Never smoker alcohol intake: never substance use type: denies use current occupational status: other Travel in the last 8 weeks: None household members: family housing: house ROS Obtained: Yes All systems reviewed & no additional complaints except as documented Constitutional Constitutional: Reports system reviewed and no additional complaints, except as documented and Reports as per HPI Eyes Eyes: Reports system reviewed and no additional complaints, except as documented ENT Ears, Nose, Mouth, and Throat: Reports system reviewed and no additional compl aints, except as documented, Reports as per HPI, Reports otalgia, Reports nasal congestion, Reports nasal discharge and Reports sinus pressure Cardiovascular Cardiovascular: Reports system reviewed and no additional complaints, except as documented Respiratory Respiratory: Reports system reviewed and no additional complaints, except as documented Gastrointestinal Gastrointestingal: Reports system reviewed and no additional complaints, except as documented Musculoskeletal Musculoskeletal: Reports system reviewed and no additional complaints, except as documented, Reports as per HPI and Reports arthralgias Integumentary/Breasts Skin/Breast: Reports system reviewed and no additional complaints, except as documented Neurologic Neurologic: Reports system reviewed and no additional complaints, except as documented Allergic/Immunologic Allergic/Immunologic: Reports system reviewed and no additional complaints, except as documented Physical Exam General General appearance: alert and in no apparent distress Head Head exam: atraumatic Eye Eye exam: Present normal appearance and PERRL ENT ENT exam: Present normal oropharynx and mucous membranes moist Expanded ENT Exam TM/Canal exam: Right TM: erythema, bulging and loss of landmarks Respiratory Respiratory exam: Present normal lung sounds bilaterally Cardiovascular Cardiovascular exam: Present regular rate and normal rhythm Back Exam Back exam: Present normal inspection and tenderness Back 1 view image: 1. tender Neurological Exam Neurological exam: Present alert and oriented X3 Medical Decision Making Medical Records Medical records reviewed: Yes I reviewed the patient's medical records. Reece Inquiry Pt receiving controlled substance: No Reece was queried for this patient: No Vital Signs: 11/17/23 12:10 Temperature 97.6 F Temperature Source Oral Pulse Rate [Right Radial] 77 Respiratory Rate 18 Blood Pressure [Right Arm] 106/65 L Blood Pressure Mean [Right Arm] 78 Blood Pressure Source [Right Arm] Automatic Cuff Blood Pressure Position [Right Arm] Sitting 02 Sat by Pulse Oximetry 96 Oxygen Delivery Method Room Air Lab Data Lab results reviewed: Yes I reviewed the patient's lab results. Orders (Tests/Meds): ORDERS Category Date Time Status Lumbar spine XR 2-3 views [XR lumbar spine 2-3V] Stat Exams 11/17/23 12:24 Ordered
[2023-11-17 12:51] VITALS: BP 106/65; PULSE 77; RESP 18; TEMP 36.4; O2SAT 96
== END 2023-11-17 12:51 | disposition home or self-care (01) ==
PROVIDERS: Emergency Provider Nurse Practitioner Family; PCP Nurse Practitioner Family
DX: S39.012A Strain of muscle, fascia and tendon of lower back, initial encounter (principal); X50.0XXA Overexertion from strenuous movement or load, initial encounter
CPT/HCPCS: 72100; 99212; 99214; G0463

== ENCOUNTER 2024-03-18 10:21 | Emergency (ER) | payer OTHER, SELFPAY ==
--- NOTE | 2024-03-18 10:35 | ED_ITS ---
Discharge Plan Disposition Patient Disposition: Home, Self-Care Condition: Good Prescriptions Prescriptions: New methylprednisolone 4 mg Tablets,Dose Pack 4 mg PO DIRECTED 6 Days Qty: 21 0RF Rx Instructions: Take 1 pack as directed for 6 days No Action allopurinol 100 mg tablet 100 mg PO DAILY Rx Instructions: TAKE 1 TABLET BY MOUTH EACH MORNING AND 2 TABLETS AT NIGHT DIRECTED Referrals Follow up/Referrals: Buddy Herrera DO [Primary Care Provider] - See instructions Activity Restrictions/Add. Instructions Additional Instructions/Restrictions: Drink plenty of fluids. Take tylenol for pain or fever. Take the medications as directed. Follow up with your regular doctor. GO TO THE ER FOR ANY WORSENING SYMPTOMS Clinical Impressions Clinical Impression: Acute viral syndrome Hand pain Qualifiers: Laterality: right Qualified Code(s): M79.641 - Pain in right hand Instructions Patient Instructions: Methylprednisolone Discharge ED Provider: Charles Doyle [facility] [place] HPI General Stated complaint: cold arm pain soa Time Seen by Provider: 03/18/24 10:35 History of Present Illness Provider Complaint: He states that for the past 2 days he has had chills, malaise. He has also had intermittent right hand tingling and numbness. Related Data Home Medications Medication Instructions Recorded Confirmed allopurinol 100 mg tablet 100 mg PO DAILY 03/18/24 03/18/24 Previous Rx's Medication Instructions Recorded methylprednisolone 4 mg tablets in 4 mg PO DIRECTED 6 days #21 tabs 03/18/24 a dose pack Allergies Allergy/AdvReac Type Severity Reaction Status Date / Time No Known Allergies Allergy Verified 11/17/23 12:32 [facility] Disclaimer: The information contained in this section may have been updated after the patient was seen, as this information can be updated by other users. Medical History (Updated 03/18/24 @ 11:49 by Charles Doyle APRN) Migraine Asthma Social History NATALY) Smoking Status: Never smoker alcohol intake: never substance use type: denies use current occupational status: other Travel in the last 8 weeks: None household members: family housing: house ROS Obtained: Yes All systems reviewed & no additional complaints except as documented Constitutional Constitutional: Denies chills and Denies fever(s) Eyes Eyes: Denies eye discharge ENT Ears, Nose, Mouth, and Throat: Denies dizziness, Denies otalgia and Denies sore throat Cardiovascular Cardiovascular: Denies chest pain Respiratory Respiratory: Denies shortness of breath, Denies chest congestion, Denies cough, Denies stridor and Denies wheezing Gastrointestinal Gastrointestingal: Denies nausea or vomiting Musculoskeletal Musculoskeletal: Reports system reviewed and no additional complaints, except as documented and Denies arthralgias Integumentary/Breasts Skin/Breast: Denies rash Neurologic Neurologic: Denies dizziness and Denies paresthesias Allergic/Immunologic Allergic/Immunologic: Denies wheezing Physical Exam General General appearance: alert and in no apparent distress Head Head exam: atraumatic, normocephalic and normal inspection Eye Eye exam: Present normal appearance, PERRL and EOMI ENT ENT exam: Present normal exam, normal oropharynx, mucous membranes moist, TM's normal bilaterally and normal external ear exam Neck Neck exam: Present normal inspection, full ROM and trachea midline; Absent meningismus or lymphadenopathy Chest Chest inspection: Present normal inspection and symmetric chest wall rise; Absent tenderness Respiratory Respiratory exam: Present normal lung sounds bilaterally; Absent respiratory distress Cardiovascular Cardiovascular exam: Present regular rate and normal rhythm; Absent JVD Abdominal Exam Abdominal exam: Present soft and normal bowel sounds; Absent distention, tenderness or guarding Extremities Exam Extremities exam: Present normal capillary refill; Absent calf tenderness Expanded Upper Extremity Exam Right: Hand exam: Present normal inspection and full ROM; Absent tenderness, swelling, abrasion, laceration, skin avulsion, ecchymosis, deformity, crepitus, dislocation, erythema, amputation, nail avulsion or subungual hematoma Neuromotor exam: Normal wrist extension, thumb opposition, thumb IP flexion, thumb adduction and fingers 2-5 abduction Neurosensory exam: Normal radial nerve, ulnar nerve and median nerve Vascular exam: Normal capillary refill, radial pulse and ulnar pulse Back Exam Back exam: Present normal inspection; Absent tenderness Neurological Exam Neurological exam: Present alert and oriented X3 Psychiatric Psychiatric exam: Present normal affect and normal mood Skin Skin exam: Present warm, dry, intact and normal color Lymphatic Lymphatic Findings: no adenopathy Medical Decision Making Medical Records Medical records reviewed: No I reviewed the patient's medical records. Reece Inquiry Pt receiving controlled substance: No Radiology Data #1: Image(s): Chest Image Reviewed: Yes I reviewed the patient's radiology image and Yes I have reviewed radiologist's interpretation Preliminary Findings: No Infiltrates Seen Accession No. 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 Views: 2 views. COMPARISON: CR XR RIBS LT MIN 3V W CXR1V 02/24/2021 12:07 PM FINDINGS: Lungs: Unremarkable. No consolidation. Pleural spaces: Unremarkable. No pleural effusion. No pneumothorax. Heart/Mediastinum: Unremarkable. No cardiomegaly. Bones/joints: Unremarkable. IMPRESSION: No acute findings.
[2024-03-18 10:40] VITALS: BP 102/76; PULSE 76; RESP 18; TEMP 37; O2SAT 100; BMI 35.4
--- NOTE | 2024-03-18 11:09 | XR_ITS ---
PROCEDURE INFORMATION: Exam: XR Chest Exam date and time: 03/18/2024 11:05 AM Age: 43 years old Clinical indication: Shortness of breath and other: Cp; Additional info: Congestion, chills, fever TECHNIQUE: Imaging protocol: Radiologic exam of the chest. Views: 2 views. COMPARISON: CR XR RIBS LT MIN 3V W CXR1V 02/24/2021 12:07 PM FINDINGS: Lungs: Unremarkable. No consolidation. Pleural spaces: Unremarkable. No pleural effusion. No pneumothorax. Heart/Mediastinum: Unremarkable. No cardiomegaly. Bones/joints: Unremarkable. IMPRESSION: No acute findings.
--- NOTE | 2024-03-18 11:36 | ECG_ITS ---
APPROVED REPORT Exam: Resting ECG HR:72 bpm ECG Measurements Heart Rate 72 AXES ID 148 P 61 QRSd 89 QRS 42 QT 348 T 35 QTc 373 Conclusion SINUS RHYTHM NORMAL ECG Electronically signed by : JOSEFINA ALSTON, 03/20/2024 12:06:53
[2024-03-18 11:58] VITALS: BP 102/76; PULSE 76; RESP 18; TEMP 37; O2SAT 100
== END 2024-03-18 12:01 | disposition home or self-care (01) ==
PROVIDERS: Emergency Provider Nurse Practitioner Family; PCP Internal Medicine
DX: M79.641 Pain in right hand (principal); R20.2 Paresthesia of skin; R68.83 Chills (without fever); B34.9 Viral infection, unspecified
CPT/HCPCS: 71046; 93005; 99212; 99214; G0463

== ENCOUNTER 2025-02-06 08:44 | Emergency (ER) | payer SELFPAY ==
--- NOTE | 2025-02-06 08:54 | PC.NURSE ---
visual acuity right eye 20/25 left eye, 20/200, E is really blurry per pt
[2025-02-06 09:00] VITALS: BP 134/84; PULSE 76; RESP 18; TEMP 36.6; O2SAT 99; BMI 35.4
[2025-02-06] MEDS: FLUORESCEIN SODIUM 1MG STRIP 1 MG OP (09:22)
[2025-02-06] MEDS: TETRACAINE 0.5% OPTH SOL 15ML OP (09:23)
--- NOTE | 2025-02-06 09:35 | ED_ITS ---
Discharge Plan Disposition Patient Disposition: Xfer Short-Term Hosp Chief Complaint: Eye Problems Prescriptions Prescriptions: No Action allopurinol 100 mg tablet 100 mg PO DAILY Rx Instructions: TAKE 1 TABLET BY MOUTH EACH MORNING AND 2 TABLETS AT NIGHT DIRECTED Referrals Follow up/Referrals: Ayad Perez APRN [Primary Care Provider] - See instructions Clinical Impressions Clinical Impression: Foreign body of left eye Qualifiers: Encounter type: initial encounter Qualified Code(s): T15.92XA - Foreign body on external eye, part unspecified, left eye, initial encounter Stand Alone Forms Stand Alone Forms: Transfer Record - ED Print Language Print Language: Indonesian Discharge ED Provider: Boyd Walsh General Adult HPI General Chief complaint: Eye Problems Stated complaint: [email or web address], pain in Lt eye Time Seen by Provider: 02/06/25 08:53 Mode of Arrival: Ambulatory Source of Information: Patient Description of Symptoms (Recalled from ER Triage Doc. by RN): c/o left eye redness, irritation, water drainage from eye and light sensitivity since Wednesday. Pt is unsure the cause of symptoms, does recall that Wednesday he was cutting a ball joint off his race car. History of Present Illness HPI narrative: Please note that above description of symptoms, in this electronic medical record under categorization of recalled from ER triage doctor by RN are reflective of an initial nursing assessment, however, is not reflective of my full history and physical exam that was personally taken and clarified. Consequentially, this preceding description of symptoms, which may include the patient's categorized chief complaint in the EMR, do not reflect my personal clinical impression, and the ultimate description of history of present illness and patient stated complaints should be deferred to this section of the note. Unless stated otherwise or congruent with this section of the note, additional signs, symptoms, or incongruence should be interpreted as inaccurate with my clinical impression. Related Data Home Medications ?Medication ?Instructions ?Recorded ?Confirmed allopurinol 100 mg tablet 100 mg PO DAILY 03/18/24 02/06/25 Allergies Allergy/AdvReac Type Severity Reaction Status Date / Time No Known Allergies Allergy Verified 11/17/23 12:32 [facility] Disclaimer: The information contained in this section may have been updated after the patient was seen, as this information can be updated by other users. 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 Status: Never smoker alcohol intake: never substance use type: denies use current occupational status: other Travel in the last 8 weeks: None household members: family housing: house Have you lived/traveled outside [place] in past 30 days?: No Contact w/someone who lives/traveled outside [place] past 30 days?: No Exposure to someone with infectious disease in past 14 days?: No Do you have a fever (greater than 100.4 F or 38 C)?: No Have you tested positive for COVID-19: No Exposed to someone with COVID-19 in past 14 days?: No Do you have a sore throat?: No Do you have a cough?: No Do you have any weakness?: No Do you have any diarrhea?: No Are you experiencing any unusual bleeding?: No Do you have any muscle aches/pain?: No Do you have any abdominal pain?: No Are you experiencing loss of taste or smell?: No Other Medical History Have you received the Flu Vaccine for this season: Yes Have you received the Pneumonia Vaccine: No ROS Obtained: Yes All systems reviewed & no additional complaints except as documented Physical Exam General General appearance: alert Head Head exam: atraumatic and normocephalic Eye Eye exam: Present PERRL, EOMI and other (Patient has erythema, no obvious abnormality with white light, but significant photophobia in the left eye. EOMs intact. No evidence of hyphema, proptosis, entrapment, conjunctival hemorrhage, pupillary changes, cellulitic change, or otherwise irregular ocular findings. ) Neck Neck exam: Present normal inspection, full ROM and trachea midline Respiratory Respiratory exam: Absent respiratory distress, wheezes, stridor, accessory muscle use or prolonged expiratory phase Cardiovascular Cardiovascular exam: Present other (Pulses equal symmetric in upper and lower extremities) Abdominal Exam Abdominal exam: Present soft; Absent distention, tenderness or pulsatile mass Extremities Exam Extremities exam: Absent edema Neurological Exam Neurological exam: Present alert, oriented X3 and CN II-XII intact; Absent motor sensory deficit Skin Skin exam: Present warm and dry; Absent diaphoresis or erythema Medical Decision Making Medical Records Medical records reviewed: Yes I reviewed the patient's medical records. Screening: Per USPSTF and CDC recommendations, given the prevalence of disease in our region, it is our hospital?s policy to screen for HIV and viral Hepatitis for all patients aged 18 and over and those with ongoing risk factors. Reece Inquiry Pt receiving controlled substance: No Reece was queried for this patient: No Vital Signs: 02/06/25 09:00 Temperature 97.9 F Temperature Source Oral Pulse Rate [Left Radial] 76 Respiratory Rate 18 Blood Pressure [Right Arm] 134/84 Blood Pressure Mean [Right Arm] 100 02 Sat by Pulse Oximetry 99 Oxygen Delivery Method Room Air Orders (Tests/Meds): ED MEDICATIONS Discontinued Medications Generic Name Dose Route Start Last Admin Trade Name Keisha PRN Reason Stop Dose Admin Fluorescein Sodium 1 mg 02/06/25 09:05 02/06/25 09:22 Fluorescein Sodium 1mg Strip OP 02/06/25 09:06 1 mg ONCE ONE Administration Tetracaine HCl 0 ml 02/06/25 09:05 02/06/25 09:23 Tetracaine 0.5% Opth Liz 15ml OP 02/06/25 09:06 15 ml ONCE ONE Administration Medical Decision Narrative: 44-year-old male presenting with foreign body in his left eye. States he was grinding metal on metal about 5 days prior to this. Did not hurt initially, started hurting 4 days prior to this and has been using lubricating eyedrops he bought from a local convenience store since that time. Visual acuity is decreased, he is photophobic and largely unable to function without sunglasses. Pain is moderate in intensity, does not radiate, made worse with EOMs. No fevers or chills. No other trauma sustained. Last tetanus vaccination was just a couple years prior to this. History was obtained via conversation with patient. On arrival, patient hemodynamically stable, alert, oriented x4, appropriate, GCS 15, moving all extremities spontaneously, pupils equal and reactive to light. Full physical exam performed and significant for Patient has erythema, no obvious abnormality with white light, but significant photophobia in the left eye. EOMs intact. Patient numbed with topical tetracaine. No evidence of hyphema, proptosis, entrapment, conjunctival hemorrhage, pupillary changes, cellulitic change, or otherwise irregular ocular findings. Fluorescein exam with focal uptake overlying the center of the pupil. Visual acuity 20/25 in the right eye, 20/200 in the left. No evidence of orbital rupture, pressures were obtained, 11.5 mmHg in the left eye. Foreign body overlying center of the pupil. Differential includes metallic foreign body, rust ring, traumatic iritis, among others. Attempted to remove with just tetracaine, patient having significant photophobia during exam and procedure, so cyclopentolate was added. Patient had significant relief with this. Most of the foreign body was removed, however still partially embedded in the center of his cornea. Given center vision, decreased vision, and concern for going deeper in necessity to remove the foreign body, [facility] was contacted and case was discussed at length for transfer for ophthalmologic evaluation for retained foreign body. Graciously accepted by Dr. Parada. 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 Electronic information security associate of the spoken language may permit errors. Although I have reviewed the note, some errors may still exist. Procedures Eye Exam/FB Removal Location: eye (L) Topical anesthetic used: tetracaine Fluorescein Stick(s) used: Yes Time Out performed: No Procedure performed under: direct visualization with magnification Foreign body: metal Evidence of corneal penetration: No Technique: irrigation, cotton tip swab and needle Post-procedure medication: ophthalmic antibiotic, topical anesthetic and cycloplegic Eye irrigated w/saline (#ccs): 5 Patient tolerated procedure: well Complications: incomplete foreign body removal Critical Care Critical Care Time Critical Care Time: No
--- NOTE | 2025-02-06 09:40 | PC.NURSE ---
called [facility] for transfer
--- NOTE | 2025-02-06 09:45 | PC.NURSE ---
speaking with for transfer
--- NOTE | 2025-02-06 09:48 | PC.NURSE ---
pt accepted to [facility]
[2025-02-06 10:22] VITALS: BP 114/80; PULSE 64; RESP 16; TEMP 36.7; O2SAT 99
== END 2025-02-06 10:23 | disposition short-term general hospital (02) ==
PROVIDERS: Emergency Provider Emergency Medicine; PCP Nurse Practitioner Family
DX: T15.92XA Foreign body on external eye, part unspecified, left eye, initial encounter (principal)
CPT/HCPCS: 99283